=== PATIENT | female | born 1980 | race Two or more races ===

== ENCOUNTER → 2023-04-26 07:00 | Outpatient (BNV) | payer OTHER, SELFPAY | PROVIDERS: PCP Internal Medicine; Visit Provider Internal Medicine Cardiovascular Disease | DX: R00.1 Bradycardia, unspecified (principal) | CPT/HCPCS: 93227 ==

== ENCOUNTER → 2023-04-26 07:34 | Outpatient (REF) | payer OTHER, SELFPAY ==
--- NOTE | 2023-04-26 | HM_ITS ---
Conclusion: 1. Patient was monitored for total period of 1 day and 23 hours 2. Baseline rhythm is normal sinus rhythm with average heart of 95 beats per minute with frequent sinus tachycardia with 45% with heart rate about 100 beats per minute 3. No significant pauses or bradycardia noted 4. Very rare PACs noted 5. Patient marked the counter 3 times correlating with sinus rhythm with sinus tachycardia MTDD
== END ==
LOC: HO.CARD 07:34
PROVIDERS: PCP Internal Medicine; Visit Provider Psychiatry & Neurology Neurology
DX: R55 Syncope and collapse (principal)
CPT/HCPCS: 93225

== ENCOUNTER 2024-06-02 14:35 | Outpatient (REF) | payer OTHER, SELFPAY ==
[2024-06-02 16:36] LABS: Erythrocyte Sedimentation Rate 14 MM/HR (0-20)
[2024-06-02 16:45] LABS: C Reactive Protein < 0.10 mg/dL (< or = 0.50)
[2024-06-03 11:17] LABS: Lyme Abs Screen <0.90 index
== END 2024-06-02 14:36 | disposition home or self-care (01) ==
LOC: HO.LAB 14:35
PROVIDERS: PCP Internal Medicine; Visit Provider Registered Nurse
DX: G43.909 Migraine, unspecified, not intractable, without status migrainosus (principal)
CPT/HCPCS: 36415; 85652; 86140; 86617; 86618

== ENCOUNTER 2025-10-16 08:47 | Outpatient (AMB) | payer BC, SELFPAY ==
--- OUTSIDE RECORDS SUMMARY | 2025-10-16 08:49 | XMS_ITS | Encounter Summary ---
Author Organization [facility] Address [address] [place] [phone] Phone Care Team Providers Care Technical Buyer Name Role Phone Pcp, Unknown Primary Care Provider Unavailabl e Encounter Details Date Type Department Care Team (Late st Contact Info) Description 11/01/2022 Transcribe Orders [facility] Specimen Processing [address] [place] [address] Greg Velasquez MD [address] [place] [phone] [email or web address] Social History Tobacco Use Types Packs/Day Years Used Date Smoking Tobacco: Never Assessed Comments Unknown Sex and Gender Information Value Date Recorded Sex Assigned at Not on file Legal Sex Female 10:51 AM EST Gender Identity Not on file Sexual Orientation Not on file documented as of this encounter Plan of Treatment Not on file documented as of this encounter Visit Diagnoses Not on filedocumented in this encounter Care Teams Technical Buyer Relationship Specialty Start Date End Date Pcp, Unknown PCP - General 11/01/22 documented as of this encounter Additional Source Comments The information contained in this document represents components of the legal health record. It is not the complete legal health record.[facility]
--- OUTSIDE RECORDS SUMMARY | 2025-10-16 08:49 | XMS_ITS ---
Author Name [facility] Organization Unknown Care Team Organization Name Specialty Phone Email Start Date End Da te [facility] Edel Montoya Primary Care 01/23/2023 06/09/2024 [facility] Jessa Valdes MD Primary Care 08/29/2022 06/09/2024
--- OUTSIDE RECORDS SUMMARY | 2025-10-16 08:49 | XMS_ITS | Encounter Summary ---
Author Organization [facility] Address [address] [place] [address] Care Team Providers Care Network Admin Name Role Phone Edel Palacios MD Primary Care Prov ider Encounter Details Date Type Department Care Team ([facility] st Contact Info) Description 08/28/2025 Results Follow-Up Gastroenterology - [address] [phone] Atul Alaniz MD [address] [phone] Social History Tobacco Use Types Packs/Day Years Used Date Smoking Tobacco: Never Smokeless Tobacco: Never Alcohol Use Standard Drinks/Week Comments Yes 0 (1 standard drink = 0.6 oz pur e alcohol) occ Housing Instability Answer Date Recorde d Are you worried that in the next 2 months you may not have stable housing? No 03/16/2025 Food Access & Nutrition Answer Date Rec orded Do you have access to a vari ety of food including fruits and vegetables? Yes 03/16/2025 Health Literacy Answer Date Recorded How often do you need to hav e someone help you when you read instructions, pamphlets, or other written material from your doctor or pharmacy? Never 03/16/2025 Caregiver: How often do you need to have someone help you when you read instructions, pamphlets, or other written material from your doctor or pharmacy? Not on file 03/16/2025 Financial Risk Answer Date Recorded How hard is it for you to pa y for the very basics like food, housing, medical care, and air conditioning / heating? Patient declined 03/16/2025 Transportation Answer Date Recorded Has the lack of transportati on kept you from meetings, work, or from getting things needed for daily living? No Has the lack of transportati on kept you from medical appointments or from getting medications? No 03/16/2025 Social Isolation Answer Date Recorded How often do you feel lonely or isolated from th ose around you? Never 03/16/2025 Food Risk Answer Date Recorded Within the past 12 months we worried whether our food would run out before we got money to buy more. Never true 03/16/2025 Within the past 12 months th e food we bought just didn't last and we didn't have money to get more. Never true 03/16/2025 Dependent Care Answer Date Recorded Do you need help finding or paying for care for your loved ones. For example, early childhood associate or elderly care for an older adult? No 03/16/2025 Education Answer Date Recorded Do you think completing more education or training, like finishing a GED, going to college, or learning a trade, would be helpful for you? N/A 03/16/2025 Employment and Income Answer Date Recor ded During the last four weeks, have you been actively looking for work? No 03/16/2025 Living Situation Answer Date Recorded What is your living situation? Unrecognized valu e 03/16/2025 Interpersonal Safety Answer Date Record ed Physical Abuse Unrecognized value 08/28/2025 Verbal Abuse Unrecognized value 08/28/2025 Comments No Sex and Gender Information Value Date Recorded Sex Assigned at Female 11/07/2024 9:15 AM EST Legal Sex Female 6:39 AM EST Gender Identity Female 11/07/2024 9:15 AM EST Sexual Orientation Straight 03/16/2025 10 :09 AM EDT documented as of this encounter Plan of Treatment Upcoming Encounters Date Type Department Care Team (Late st Contact Info) Description 02/25/2026 1:15 PM EDT Office Visit Bariatric Surgery - [address] [place] [address] Glenis Parks MD [address] [place] [phone] documented as of this encounter Visit Diagnoses Not on filedocumented in this encounter Additional Health Concerns Assessment Noted Time PHQ-9 Depression Total Score: 0 05/28/20 9:43 AM EDT documented as of this encounter Care Teams Network Admin Relationship Specialty Start Date End Date Edel Palacios MD [address] [place] [phone] PCP - General Internal Medicine 11/07/24 documented as of this encounter
--- OUTSIDE RECORDS SUMMARY | 2025-10-16 08:49 | XMS_ITS | Clinical Summary ---
Author Organization [facility] Address [address] [place] [address] Phone Care Team Providers Care Diamond Sizer Name Role Phone Edel Palacios MD Primary Care Prov ider Allergies Active Allergy Reactions Criticality Noted Date Comments Ceftriaxone Sodium 03/26/2006 Other Reaction(s): Hives/Urticaria Medications Depakote [address] tablet at bedtime. 11/14/19 25 Active cyclobenzapri ne (FLEXERIL) 10 mg tablet 2 (two) times a day. 03/10/20 25 Active diclofenac (VOLTAREN) 75 mg EC tablet 03/10/20 25 Active multivitamin- gfw-koww-AU-v it K (Bariatric Multivitamins ) 45 mg iron- 800 mcg-120 mcg capsule 02/05/20 25 Active Ubrelvy 100 mg tablet 04/08/20 25 Active amitriptyline (ELAVIL) 150 mg tablet Take 1 tablet (150 mg total) by mouth at bedtime. 06/01/20 25 Active polyethylene glycol (Golytely) 236-22.74-6.7 4 -5.86 gram solution Take 4L by mouth once for one dose. May substitue any PEG. Starting at 2PM the day before your procedure drink 1 8oz glasses at your own pace until you complete half of the gallon. Finish 2nd half of the gallon at 8PM. 4000 mL 08/14/20 25 Active bisacodyL (DULCOLAX) 5 mg EC tablet Take 2 tablets by mouth right before beginning bowel prep. See instructions provided by the office 2 tablet 08/14/20 Active oxyBUTYnin (DITROPAN) 5 mg tablet Take 1 tablet (5 mg total) by mouth 2 (two) times a day if needed (urinary urgency). 90 each 09/09/20 25 2025 Active semaglutide (Wegovy) 2.4 mg/0.75 mL injection pen INJECT 2.4 MG SUBCUTANEOUSLY ONE TIME PER WEEK 3 mL 10/06/20 Active semaglutide (Wegovy) 2.4 mg/0.75 mL injection pen Inject 2.4 mg under the skin every 7 (seven) days. 3 mL 09/08/20 25 2024 Discontinued Active Problems Problem Noted Date Diagnosed Date Class 1 obesity with serious comorbidity and body mass index (BMI) of 31.0 to 31.9 in adult 10/01/2024 PCOS (polycystic ovarian syndrome) 10/01/2024 Chronic left-sided low back pain 09/24/2024 Dyspareunia due to medical condition in female 1 Labial hypertrophy 08/03/2021 Rash 04/13/2021 Over weight 02/14/2021 Multinodular goiter 11/23/2020 Gallstones 08/05/2020 Thyroid mass 08/05/2020 Overview (10/01/2024): Noted on barium swallow in 2018, unchanged on barium swallow in June 2020. Ultrasound reveals 6.5 x 4.2 x 5.8 cm mixed signal intensity mass in the left lower pole of the thyroid lobe; FNA benign, referred for endocrine intervention Gastroesophageal reflux disease 01/16/2019 Intestinal malabsorption following gastrectomy 0 01/16/2019 Overview (10/01/2024): Upper GI series showed market constriction July 2020. Snoring 07/12/2018 Overview (10/01/2024): 06/2018 Home Sleep Study did not reveal sleep apnea. Iron deficiency anemia 06/11/2018 Migraine headache 08/10/2010 Encounters Date Type Department Care Team Description 09/09/2025 10:00 AM EST Office Visit Urogynecology - [place] [address] [place] [phone] Gwen Carter MD Urinary urgency (Primary Dx); Voiding dysfunction 08/28/2025 2:15 PM EST Anesthesia Event [facility] [address] [place] [phone] Fanny Wynn MD 08/28/2025 12:27 PM EST - 08/28/2025 11:59 PM EST Hospital Encounter [facility] [address] [place] [phone] Atul Alaniz MD Slanda, Summer, CRNA Kriz, Petra, MD Colon cancer screening Discharge Disposition: Home or Self Care 08/28/2025 Results Follow-Up Gastroenterology - [address] [facility] [address] [facility] [address] [place] [phone] Atul Alaniz MD 08/25/2025 1:45 PM EST Office Visit Bariatric Surgery - [place] [address] [facility] [address] [place] [phone] Glenis Parks MD Class 1 obesity due to excess calories with body mass index (BMI) of 30.0 to 30.9 in adult, unspecified whether serious comorbidity present (Primary Dx) from Last 3 Months Immunizations Immunization Administration Dates Next Due H1N1 Inj Preservative Free 08/09/2009 Hepatitis B (Usaqglu-Z-Dgwdp , Recombivax HB-Adult) 19yo and older 02/07/2012 Influenza Quadravalent, MDCK , 0.5ml, preservative free (Flucelvax) 6mo and older 10/05/2020 Tdap Tetanus diptheria acell ular pertussis (Boostrix; Adacel) 7yo and older 12/26/2023,02/07/2012 Surgical History Surgery Date Site/Laterality Comments TONSILLECTOMY ADENOIDECTOMY, BILATERAL MYRINGOTOMY AND TUBES PROCEDURE: NM TONSILLECTOMY & ADENOIDECTOMY <AGE 12 SECTION x3 WRIST SURGERY 12/2009 PROCEDURE: HISTORICAL WRIST SURGERY; COMMENT: dorsal compartment release OTHER SURGICAL HISTORY 09/28/2010 D&C DX&/THER NONOBSTETRIC CARPAL TUNNEL RELEASE 02/2011 Dr. Jose Alejandro YANEZ OTHER SURGICAL HISTORY 01/2021 NM PRTL THYROID LOBECTOMY UNI W/WO ISTHMUSECTOMY TUBAL LIGATION 07/02/2013 PROCEDURE: HISTORICAL TUBAL LIGATION OTHER SURGICAL HISTORY 09/29/[address] Ryan Belle LAPAROSCOPIC PARTIAL GASTRECTOMY 10/22/2019 - 10/21/2020 Sleeve LAPAROSCOPIC GASTRIC BANDING 10/22/2011 - 10/21/2012 subsequent removal conversion to sleeve SALPINGOOPHORECTOMY Right; due to teratoma CHOLECYSTECTOMY HIATAL HERNIA REPAIR Medical History Medical History Date Comments PCOS (polycystic ovarian syndrome) DX:PCOS (polycystic ovarian syndrome) Migraine headache 08/10/2010 DX:Migraine he adache Obesity 08/10/2010 DX:Obesity Iron deficiency anemia 06/11/2018 DX:Iron d eficiency anemia History of menorrhagia 06/11/2018 DX:Histor y of menorrhagia; COMMENT: S/p IUD 05/2018 H/O laparoscopic adjustable gastric banding 06/11/2018 DX:H/O laparoscopic adjustab le gastric banding Class 1 obesity due to exces s calories without serious comorbidity with body mass index (BMI) of 34.0 to 34.9 in adult 01/16/2019 DX:Class 1 obesity due to ex cess calories without serious comorbidity with body mass index (BMI) of 34.0 to 34.9 in adult Gastroesophageal reflux disease 01/16/2019 DX:Gastroesophageal reflux disease Snoring 07/12/2018 DX:Snoring; COMM ENT: 06/2018 Home Sleep Study did not reveal sleep apnea. Neck mass 08/05/2020 DX:Neck mass; CO MMENT: Noted on barium swallow in 2018, unchanged on barium swallow in June 2020. Possibly enlarged thyroid causing this. Pending follow-up ultrasound Multinodular goiter 11/23/2020 DX:Multinodu lar goiter Family History Medical History Relation Name Comments Other: pancreatic cancer Aunt paternal Crohn's disease Brother Other: PCOS Daughter 1 Zyniah Other: Pre-diabetes Daughter 1 Zyniah No Known Problems Daughter 2 Lnykiah No Known Problems Daughter 3 Aniyhla Lung cancer Father liver mets Pancreatic cancer Father No Known Problems Maternal Grandfather Coronary artery disease Maternal Grandmother Diabetes Maternal Grandmother Hyperlipidemia Maternal Grandmother Hypertension Maternal Grandmother Parkinson's Disease Maternal Grandmother Depression Mother Diabetes Mother Hypercholestero lemia, Depression, RA Hyperlipidemia Mother Rheum arthritis Mother Lung cancer Paternal Grandmother + smoke r Diabetes Sister Other: stomach ca Uncle paternal Breast cancer Neg Hx Colon cancer Neg Hx Heart attack Neg Hx Stroke Neg Hx Relation Name Status Comments Aunt paternal Brother Alive Daughter 1 Zyniah Alive Daughter 2 Lnykiah Alive Daughter 3 Aniyhla Alive Father Hx not known Maternal Grandfather Maternal Grandmother Mother Alive Paternal Grandmother Sister Alive Uncle paternal Social History Tobacco Use Types Packs/Day Years Used Date Smoking Tobacco: Never Smokeless Tobacco: Never Tobacco Cessation:Counseling Given: Not Answered Alcohol Use Standard Drinks/Week Comments Yes 0 [...] care for your loved ones. For example, child development consultant or elderly care for an older adult? [...] Orientation Straight 03/16/2025 10 :09 AM EDT Obstetrics History * This document contains information received from the source organization and may not represent a complete record from that organization. Para Term AB IAB SAB Ectopic Multiple Livin g Live Births 5 3 3 3 3 Date Outcome GA Total Labor Labor/2nd/3rd Weight Sex Type Anes PTL Debbie A1 A5 Name Clin 2004 2006 Term 38w 0d 3062 g (108 oz) F CS-Un spec Livin g Zyniah Comments:Poor biophysi iman profile 2006 2008 Term 38w 0d 4185 g (147.6 oz) F CS-Un spec Livin g 8 9 Brooke Tang Delivery [facility] 2012 Term 3771 g (133 oz) F CS-LT ranv Livin g Aniyhl a Last Filed Vital Signs Vital Sign Reading Time Taken Comments Blood Pressure 101/70 09/09/2025 9:47 AM EST Pulse 109 09/09/2025 9:47 AM EST Temperature 36.1 C (97 F) 08/28/2025 2:44 PM EST Respiratory Rate 17 08/28/2025 3:04 PM EST Oxygen Saturation 98% 08/28/2025 3:04 PM EST Inhaled Oxygen Concentration - - Weight 90.3 kg (199 lb) 09/09/2025 9:47 AM EST Height 172.7 cm (5' 8 ) 09/09/2025 9:47 AM EST Body Mass Index 30.26 09/09/2025 9:47 AM EST Plan of Treatment Upcoming Encounters Date Type Department Care Team (Late st Contact Info) Description 02/25/2026 1:15 PM EDT Office Visit Bariatric Surgery - [place] [address] [facility] [address] [place] [phone] Glenis Parks MD [address] [place] [phone] Health Maintenance Due Date Last Done Comments Influenza Vaccine (#1) 2025 10/05/2020, 2008 Social Influencers of Health Screening 03/16/2026 03/16/2025 Breast Cancer Screening 05/29/2027 05/29/20, 10/13/2023, 10/10/2022, Additional history exists Cervical Cancer Screening: HPV 05/28/2030 05/28/2025 Cholesterol Screening (Lipid Panel) 06/26/2030 06/26/2025, 01/18/2024 DTaP,Tdap,and Td Vaccines (3 - Td or Tdap) 12/25/2033 12/26/2023, 02/07/2012 Colorectal Cancer Screening: Colonoscopy 08/28/2035 08/28/2025 RSV Immunization Adult Patients (1 - 1-dose 75+ series) 2053 Hepatitis B Vaccines Discontinued 02/07/2012 HIV Screening Completed 06/11/2018 Hepatitis C Screening Completed 08/14/2020 COVID-19 Vaccine Discontinued 12/31/2021, , 02/04/2021 Depression Screening Completed 05/28/2025, 12/26/19 24 HIB Vaccines Aged Out No longer eligi ble based on patient's age to complete this topic HPV Vaccines Aged Out No longer eligi ble based on patient's age to complete this topic Hepatitis A Vaccines Aged Out No long er eligible based on patient's age to complete this topic IPV Vaccines Aged Out No longer eligi ble based on patient's age to complete this topic MMR Vaccines Aged Out No longer eligi ble based on patient's age to complete this topic Meningococcal ACWY Vaccine Aged Out N o longer eligible based on patient's age to complete this topic Meningococcal B Vaccine Aged Out No l onger eligible based on patient's age to complete this topic Pneumococcal Vaccine: Pediatrics (0 to 5 Years) and At-Risk Patients (6 to 49 Years) Aged Out No longer eligible based on patient's age to complete this topic RSV Immunization Patients Under 20 months Aged Out No longer eligible based on patient's age to complete this topic Varicella Vaccines Aged Out No longer eligible based on patient's age to complete this topic Procedures Procedure Name Priority Date/Time Associated Diagnosis Comments POC URINE AUTO W/O MICRO Routine 09/09/2025 10:20 AM EST Urinary urgency COLONOSCOPY Routine 08/28/2025 2:41 PM EST Colon cancer screening POC PREGANCY, URINE NO CHARGE SCREENING MANUALLY RESULTED Routine 08/28/2025 1:53 PM EST LIPID PANEL WITH REFLEX TO DIRECT LDL Routine 06/26/2025 9:49 AM EDT Screening for cardiovascular condition MG MAMMO DIGITAL SCREENING W MANUEL BILAT Routine 05/29/2025 2:30 PM EDT Encounter for screening mammogram for breast cancer HPV WITH REFLEX GENOTYPE Routine 05/28/2025 11:07 AM EDT Cervical cancer screening HM DEPRESSION SCREENING Routine 12/26/2023 HEPATITIS C SCREENING Routine 08/14/2020 HIV SCREENING Routine 06/11/2018 from Last 3 Months or Most Recently Relevant to Health Maintenance Results * (ABNORMAL) POC Urine Auto W/O Micro (09/09/2025 10:20 AM EST) Glucose UA POC Negative Negative, Trace mg/dL Bilirubin UA POC Small(A) Negative Ketones UA POC 15(A) Negative Specific [place] UA POC 1.020 Blood UA POC Negative Negative PH UA POC 5.5 Protein UA POC Trace(A) Negative mg/dL Urobilinogen UA POC 0.2 E.U./dL 0.2 E.U./dL, 1.0 E.U./dL, 8 , Unable to interpret due to interfering substances mg/dL Nitrite UA POC Negative Negative Leukocytes UA POC Negative Negative Urine Urine specimen obtained by clean catch procedure / Unknown 09/09/2025 10:20 AM EST Gwen Carter MD POINT OF CARE TEST ENTER/EDIT O RDERABLES Final Result * COLONOSCOPY Anesthesia - MAC; [facility] ENDOSCOPY (08/28/2025 2:41 PM EST) Anatomical Region Laterality Modality Other 08/28/2025 2:20 PM EST Impressions 08/28/2025 2:41 PM EST - The entire examined colon is normal on direct and retroflexion views. - No specimens collected. Recommendation: - Repeat colonoscopy in 10 years for screening purposes. Narrative 08/28/2025 2:41 PM EST [facility] GI Patient Name: Celio Tidwell Procedure Date: 08/28/2025 2:20 PM Date of : 1980 Age: 45 Room: ROOM 14 Gender: Female Note Status: Finalized Attending MD: Atul Alaniz MD, Procedure Date No Time: 08/28/2025 Procedure: Colonoscopy Indications: Screening for colorectal malignant neoplasm Providers: Atul Alaniz MD Referring MD: Atul Alaniz MD Medicines: Propofol per Anesthesia Complications: No immediate complications. Estimated Blood Loss: Estimated blood loss: none. Procedure: Pre-Anesthesia Assessment: - ASA Grade Assessment: II - A patient with mild systemic disease. After I obtained informed consent, the scope was passed under direct vision. Throughout the procedure, the patient's blood pressure, pulse, and oxygen saturations were monitored continuously.The Olympus Pediatric Colonosocpe was introduced through the anus and advanced to the cecum, identified by appendiceal orifice and ileocecal valve. The colonoscopy was performed without difficulty. The patient tolerated the procedure well. The quality of the bowel preparation was good. Findings: The perianal and digital rectal examinations were normal. The entire examined colon appeared normal on direct and retroflexion views. Procedure Code(s): --- Professional --- G0121, Colorectal cancer screening; colonoscopy on individual not meeting criteria for high risk Diagnosis Code(s): --- Professional --- Z12.11, Encounter for screening for malignant neoplasm of colon CPT copyright 2020 [employer]. All rights reserved. The codes documented in this report are preliminary and upon mine wirer review may be revised to meet current compliance requirements. Atul Alaniz MD 08/28/2025 2:41:18 PM This report has been signed electronically.Atul Alaniz MD Number of Addenda: 0 Note Initiated On: 08/28/2025 2:20 PM Scope In: Scope Out: Endoscopy Department at [facility] - [address] [place] [phone] Procedure Note Atul Alaniz MD - 08/28/2025 [facility] GI Patient Name: Celio Tidwell Procedure Date: 08/28/2025 2:20 PM Date of : 1980 Age: 45 Room: ROOM 14 Gender: Female Note Status: Finalized Attending MD: Atul Alaniz MD, Procedure Date No Time: 08/28/2025 Procedure: Colonoscopy Indications: Screening for colorectal malignant neoplasm Providers: Atul Alaniz MD Referring MD: Atul Alaniz MD Medicines: Propofol per Anesthesia Complications: No immediate complications. Estimated Blood Loss: Estimated blood loss: none. Procedure: Pre-Anesthesia Assessment: - ASA Grade Assessment: II - A patient with mild systemic disease. After I obtained informed consent, the scope was passed under direct vision. Throughout theprocedure, the patient's blood pressure, pulse, and oxygen saturations were monitored continuously.The Olympus Pediatric Colonosocpe was introduced through theanus and advanced to the cecum, identified byappendiceal orifice and ileocecal valve. The colonoscopy was performed without difficulty. The patient tolerated the procedure well. The quality of the bowel preparation was good. Findings: The perianal and digital rectal examinations were normal. The entire examined colon appeared normal on direct and retroflexion views. Procedure Code(s): --- Professional --- G0121, Colorectal cancer screening; colonoscopy on individual not meeting criteria for high risk Diagnosis Code(s): --- Professional --- Z12.11, Encounter for screening for malignantneoplasm of colon CPT copyright 2020 [employer]. All rights reserved. The codes documented in this report are preliminary and upon mine wirer reviewmay be revised to meet current compliance requirements. Atul Alaniz MD 08/28/2025 2:41:18 PM This report has been signed electronically.Atul Alaniz MD Number of Addenda: 0 Note Initiated On: 08/28/2025 2:20 PM Scope In: Scope Out: Endoscopy Department at [facility] - [address] [place] [phone] IMPRESSION: - The entire examined colon is normal on direct and retroflexion views. - No specimens collected. Recommendation: - Repeat colonoscopy in 10 years for screening purposes. Atul Alaniz MD GI~PROCEDURE ORDERABLES Fin al Result * POC , urine NO CHARGE screening manually resulted (08/28/2025 1:53 PM EST) HCG, Ur POC Negative Negative POC hCG Int QC Pass? Yes Yes Urine Urine specimen obtained by clean catch procedure / Unknown 08/28/2025 1:53 PM EST Fanny Wynn MD POINT OF CARE TEST ENTER/EDIT OR DERABLES Final Result * Lipid panel with reflex to direct LDL (06/26/2025 9:49 AM EDT) Cholesterol 104 0 - 200 mg/dL LAB CHEMISTRY METHOD 06/26/2025 12:47 PM EDT [facility] Triglycerides 75 0 - 150 mg/dL LAB CHEMISTRY METHOD 06/26/2025 12:47 PM EDT [facility] HDL 49 >=40 mg/dL LAB CHEMISTRY METHOD 06/26/2025 12:47 PM EDT [facility] LDL Calculated 40 0 - 100 mg/dL LAB CHEMISTRY METHOD 06/26/2025 12:47 PM EDT [facility] Comment:Estimated LDL Calcul ated using equation: Total cholesterol - HDL cholesterol - (Triglycerides/5) VLDL Cholesterol Iman 15 mg/dL LAB CHEMISTRY METHOD 06/26/2025 12:47 PM EDT [facility] Non HDL Chol. (LDL+VLDL) 55 <145 mg/dL LAB CHEMISTRY METHOD 06/26/2025 12:47 PM EDT [facility] Chol/HDL Ratio 2.1 0.0 - 4.4 LAB CHEMISTRY METHOD 06/26/2025 12:47 PM EDT [facility] Blood Venous blood specimen / Unknown Venipuncture / Unknown 06/26/2025 9:49 AM EDT 06/26/2025 9:49 AM EDT us Francesca STACY LAB BLOOD ORDERABLES Final Resu lt [facility] [address] [place] [address], [place] [phone] * MG Mammo Digital Screening w Manuel bilat (05/29/2025 2:30 PM EDT) Anatomical Region Laterality Modality Breast Bilateral Mammography 06/01/2025 8:01 PM EDT Impressions 06/01/2025 8:01 PM EDT No mammographic evidence of malignancy. BREAST DENSITY: B - There are scattered areas of fibroglandular density. BI-RADS CATEGORY: 1 - NEGATIVE RECOMMENDATION: Screening bilateral mammogram is recommended in 1 year. MAMMO LOCATION: [facility], [address] [place] [address], [phone], . -------- FINAL REPORT -------- Dictated By: Maria Fernández Dictated Date: 06/01/2025 20:01 ET Assigned Physician: Maria Fernández Reviewed and Electronically Signed By: Maria Fernández Signed Date: 06/01/2025 20:01 ET Workstation ID: [id number] Transcribed By: Self Edit Transcribed Date: 06/01/2025 20:01 ET Narrative 06/01/2025 8:01 PM EDT EXAM: Screening Mammogram CLINICAL: 45 years old, Female, routine annual exam. COMPARISON: 10/13/2023 and as far back as 08/07/2020 TECHNIQUE: Bilateral MLO and CC views were obtained digitally with 3-D mammogram (digital breast tomosynthesis). Computer-aided detection was utilized in evaluation of this exam (CAD). FINDINGS: No new suspicious mass, architectural distortion, or suspicious calcifications. Procedure Note Maria Fernández MD - 06/01/2025 EXAM: Screening Mammogram CLINICAL: 45 years old, Female, routine annual exam. COMPARISON: 10/13/2023 and as far back as 08/07/2020 TECHNIQUE: Bilateral MLO and CC views were obtained digitally with 3-Dmammogram (digital breast tomosynthesis). Computer-aided detection wasutilized in evaluation of this exam (CAD). FINDINGS: No new suspicious mass, architectural distortion, or suspiciouscalcifications. IMPRESSION: No mammographic evidence of malignancy. BREAST DENSITY: B - There are scattered areas of fibroglandular density. BI-RADS CATEGORY: 1 - NEGATIVE RECOMMENDATION: Screening bilateral mammogram is recommended in 1 year. MAMMO LOCATION: [facility], [address] [place] [address], [phone], . -------- FINAL REPORT -------- Dictated By: Maria Fernández Dictated Date: 06/01/2025 20:01 ET Assigned Physician: Maria Fernández Reviewed and Electronically Signed By: Maria Fernández Signed Date: 06/01/2025 20:01 ET Workstation ID: [id number] Transcribed By: Self Edit Transcribed Date: 06/01/2025 20:01 ET Cherelle STACY IMG BI PROCEDURES Final Resu lt * HPV with reflex genotype (05/28/2025 11:07 AM EDT) HPV Negative Negative LAB MICROBIOLOGY METHOD 05/29/2025 1:52 PM EDT [facility] Brushing/Spatula Cervix uteri structure / Unknown 05/28/2025 11:07 AM EDT 05/29/2025 6:51 AM EDT Cherelle STACY LAB MOLECULAR DIAGNOSTICS OR DERABLES Final Result [facility] [address] [place] [address], * Depression Screening (12/26/2023) Depression Screening abstracted Historical Provider HEALTH MAINTENANCE Final Result * Hepatitis C Screening (08/14/2020) [facility]ologist [facility] Hepatitis C Screening abstracted Historical Provider HEALTH MAINTENANCE Final Result * HIV Screening (06/11/2018) Pathologist [facility] HIV Screening abstracted Historical Provider HEALTH MAINTENANCE Final Result from Last 3 Months or Most Recently Relevant to Health Maintenance Insurance [place] [phone] Care Teams Diamond Sizer Relationship Specialty Start Date End Date Edel Palacios MD [address] [place] [phone] PCP - General Internal Medicine 11/07/24
--- OUTSIDE RECORDS SUMMARY | 2025-10-16 08:49 | XMS_ITS | Clinical Summary ---
Author Organization [facility] Address [address] [phone] Phone Care Team Providers Care Material Clerk Name Role Phone Pcp, Unknown Primary Care Provider Unavailabl e Social History Tobacco Use Types Packs/Day Years Used Date Smoking Tobacco: Never Assessed Education Answer Date Recorded Are you interested in more education? Not on viki e 02/17/2023 Are you concerned about learning? Not on file 02/17/2023 No 02/17/2023 No 02/17/2023 Digital Access Answer Date Recorded No 03/20/2023 No 03/20/2023 Reliable internet access at home? Not on file 03/20/2023 Device with a working camera? Not on file Comments Unknown Sex and Gender Information Value Date Recorded Sex Assigned at Not on file Legal Sex Female 10:51 AM EST Gender Identity Not on file Sexual Orientation Not on file Plan of Treatment Not on file Medical Devices Not on file Insurance [address] [place], [place] [id number] [place], [place] [id number] Member Subscriber Plan / Payer (Ef fective 2022-Present) Name:Celio Edwards Relation to Subscriber:Self Name:Celio Edwards Payer ID:Not on file Type:[facility] Address: [address] [facility] [address] [place], [place] [id number] Member Subscriber Plan / Payer (Ef fective 2022-Present) Name:Celio Edwards Relation to Subscriber:Self Name:Celio Edwards Payer ID:Not on file Type:[facility] Address: [address] [facility] Care Teams Material Clerk Relationship Specialty Start Date End Date Pcp, Unknown PCP - General 11/01/22 Additional Source Comments The information contained in this document represents components of the legal health record. It is not the complete legal health record.[facility]
--- NOTE | 2025-10-16 09:23 | A.OFFVIS_ITS ---
Intake Visit Reasons: 6m Allergies ceftriaxone (From Rocephin) Allergy (Unknown, Verified 10/16/25 09:26) Unknown Medication List - Last Reconciled 10/16/25 by Tracy Ramires CNP amitriptyline 150 mg PO BEDTIME 90 days cyclobenzaprine 10 mg PO TID PRN diclofenac sodium 75 mg PO BID divalproex (Depakote) 250 mg PO BEDTIME 30 days ondansetron 4 mg PO DAILY oxybutynin chloride 5 mg PO BID PRN semaglutide (weight loss) (Wegovy) mg subcut ubrogepant (Ubrelvy) mg PO HPI Comments Details: Migraines had been okay with Depakote, happening about 1x/week and lasting few hours, but increased around 08/2025. Migraines are now happening about 2- 3x/week and could last few days each time. Pain could be all over head and behind eyes, throbbing or pounding-type, with some photophobia, sonophobia, and nausea. Her head felt heavy and she would feel like she had to lay down. No specific triggers identified. Ubrelvy as needed was not helping anymore. No significant neck pain. Back pain was better with injection from [facility], lasted about 7 months and was scheuled for next injection in 10/2025. Her body was sensitive to touch all over, including abdomen and legs when she had headache. Sleep was so-so. She was working Sunday - second shift. She had FMLA forms to be completed. Previously, migraines were less frequent with Depakote, happening about 1x/week. Ubrelvy samples which helped. She was referred to [facility] for low back pain by RENATA. Propranolol did not help with headaches. Headaches are happening about 4x/week and lasting longer.?Pain to left side of head, behind left eye, and back of head with photophobia, sonophobia, nausea, and occasional vomiting. Sumatriptan, rizatriptan, ibuprofen, naproxen, and Tylenol have not helped. Nurtec did not help and made her nauseous. Pain gets worse with position changes. Not sleeping well. Seeing ortho for hip 11/20/2024 and then for back in 11/2024.? She had XR and LS spine MRI in 07/2024 which apparently showed some old fx and vertebral wedging. Was seeing chiropractor and is waiting for appointment with orthopedics. Was getting headaches about 3x/week, down from 4-5x/week. Working in long term Sunday to . Works day shift on Sunday and 3p-11p Sunday through . Cetirizine helped with nasal symptoms. She has a history of migraine headaches without aura starting age 8, with severe pounding headache, photophobia, sonophobia, nausea and vomiting. In 2021, she developed a new type of headache, wakes up with a frontal steady VANEGAS lasting 2-3 hrs with no other assoc sx. She has not identified any triggers. There is no history of trauma. Problems initiating and maintaining sleep. There are no visual symptoms no sinus complaints. No syncope, previous episodes of sudden blackening/ darkening of vision for a few seconds when going from sitting to standing, waits for it to pass, 1-4/ day occasionally with heart racing. Notices when she gets up quick. Syncope in 2008 and 2021 when she got out of bed and then woke on the floor. 1-2/ month she gets a swwet burning and things go black for a few seconds. [facility] Medical History (Updated 10/16/25 @ 09:26 by Tracy Ramires CNP) PCOS (polycystic ovarian syndrome) Allergic rhinitis Surgical History (Updated 10/16/25 @ 09:26 by Tracy Ramires CNP) H/O gastric bypass Hx of laparoscopic gastric banding Review of Systems Const Denies chills, Denies daytime sleepiness, Reports difficulty sleeping, Denies fatigue, Denies fever(s), Denies frequent falls, Reports headache(s), Denies increased appetite, Denies poor appetite, Denies snoring, Denies weakness, Denies weight gain and Denies weight loss Eyes Denies loss of vision ENT Denies vertigo, Reports dizziness, Reports headache(s) and Denies neck pain Card Denies chest pain at rest, Denies chest pain with activity, Denies syncope, Denies leg edema, Denies palpitations, Denies dyspnea and Denies dyspnea on exertion Resp Denies cough, Denies dyspnea, Denies dyspnea on exertion and Denies snoring GI Denies abdominal pain, Denies constipation, Denies heartburn, Denies diarrhea and Denies nausea Denies urinary frequency, Denies urinary incontinence and Denies urinary urgency Musc Denies abnormal gait, Denies back pain, Denies myalgias, Denies arthralgias, Denies neck pain, Denies numbness and Denies tingling Neuro Denies abnormal gait, Denies vertigo, Reports dizziness, Denies syncope, Denies frequent falls, Reports headache(s), Denies lack of coordination, Denies loss of vision, Denies memory loss, Denies numbness, Denies Other visual disturbances, Denies restless legs, Denies seizure-like activity, Denies tingling, Denies paresthesias, Denies tremor(s) and Denies weakness Psych Denies anxiety, Denies depression, Denies auditory hallucinations, Denies memory loss and Denies visual hallucinations Endo Denies fatigue and Denies palpitations Physical Exam Const Other: General Appearance:? normal, in no acute distress. Heart:? S1, S2 normal, no murmurs. Lungs:? clear anteriorly and posteriorly. Musculoskeletal:? normal. Extremities:? no edema. Psych:? alert, oriented, cognitive function intact, cooperative with exam. Neuro Other: Abnormal Neurological Findings:?none.? Mental Status: alert and oriented X 3. Normal attention, orientation, memory, and affect. Cranial Nerves: Pupils are equal, round, and reactive to light. External ocular muscles are intact. Visual garcia are full, no ptosis. Face is symmetrical, no facial weakness or droop. Facial sensations are normal. Tongue protrudes in midline. Palate elevates symmetrically. Shoulder shrugging is normal Motor Examination: Normal muscle tone, bulk and strength. No atrophy or fasciculations. No drift of the extended upper extremities. DTR 2+. Plantars are flexor. Sensory Exam: Normal light touch, temperature, pinprick, vibration, and joint- position sensations. Rhomberg sign is absent. Coordination: No ataxia. No titubation. Kjpjck-qw-rnkg, czcx-ezok-lvnv test, and rapid alternating movements were normal. Gait Exam: Within normal limits. Cerebellar Signs: Bfjtvy-is-nrl is okay. Extrapyramidal System: No tremor, rigidity with normal facial expressions. No bradykinesia. No bradyphrenia. Normal arm swing and posture. No propulsion or retropulsion. Speech: Normal. Results Reviewed Results Reviewed: MRI brain at [facility] 10/2024: No significant interval change in nonspecific white matter signal abnormalities MRI brain was normal in 2013 and 202105/11/23 EEG- WNL 05/08/23 48 hr holter normal. Assessment & Plan Assessment & Plan (1) Migraine: Code(s): G43.909 - Migraine, unspecified, not intractable, without status migrainosus Category: Medical Qualifiers: Intractability: not intractable Migraine type: unspecified Status migrainosus presence: without status migrainosus Qualified Code(s): G43.909 - Migraine, unspecified, not intractable, without status migrainosus Plan: Migraines were happening 2-3x, lasting up to days at a time. She has tried and failed multiple prophylactic and abortive medications for migraines including: Tylenol, naproxen, ibuprofen, sumatriptan, rizatriptan, nurtec, ubrelvy, topiramate, amitriptyline, propranolol, and Depakote. She was also taking cyclobenzaprine and diclofenac which did not help. Continue Depakote 250mg 1 tablet at bedtime. Continue amitriptyline 150mg 1 tablet at bedtime. Continue ondansetron 4mg 1 tablet as needed for nausea/vomiting #10 for 30 days. Start Ajovy 225mg/1.5mL subcutaneous monthly, use/side effects reviewed. Ubrelvy as needed did not help. Start [id number] 50-325-40mg 1-2 tablets as needed for headache #14 for 30 days. FMLA forms completed and returned to patient. Follow up in 2 months or sooner as needed. (2) Tension headache: Code(s): G44.209 - Tension-type headache, unspecified, not intractable Category: Medical Plan Meds tried: Imitrex, naproxen, rizatriptan, nurtec, Ubrelvy, topiramate, amitriptyline, propranolol, Depakote Medications: New okqxyqwpwz-nrnnbbysdxbrl-bwjm 50-325-40 mg 1 - 2 tabs PO DAILY PRN 14 tabs 2RF headache 30 days fremanezumab-vfrm (Ajovy) 225 mg (1.5 mL) subcut QMONTH 1 ea 5RF 30 days Refilled amitriptyline 150 mg PO BEDTIME 90 tabs 1RF 90 days Coding Level of Care Code Est Pt Level 4 (10995) Diagnoses Migraine without status migrainosus, not intractable, unspecified migraine type G43.909 Intractability: not intractable Migraine type: unspecified Status migrainosus presence: without status migrainosus Tension headache G44.209
== END 2025-10-16 09:46 | disposition home or self-care (01) ==
LOC: HO.HSM 08:47
PROVIDERS: PCP Internal Medicine; Visit Provider Registered Nurse
DX: G43.909 Migraine, unspecified, not intractable, without status migrainosus (principal); G44.209 Tension-type headache, unspecified, not intractable
CPT/HCPCS: 99214